=== PATIENT | male | born 1975 | race Caucasian/White ===

== ENCOUNTER 2018-09-29 15:52 | Emergency (ER) | payer BC, OTHER ==
[~2018-09-29] VITALS: Wt 98.9 kg
[2018-09-29 15:57] VITALS: BP 126/73; PULSE 87; RESP 19
--- NOTE | 2018-09-29 18:00 | ERD ---
ER Documentation Chief Complaint Chief Complaint bib self, cc: flu like symptoms x 1 week HPI 43-year-old male, presents to the emergency department, complaining of upper respiratory symptoms for 1 week that worsened during the last 2 days, now the patient is complaining of fever, chills, productive cough, shortness of breath and general malaise. The patient has been taking [id number] medication without improvement of the symptoms. He is requesting a prescription for antibiotics. ROS All systems reviewed and are negative except as per history of present illness. Medications Home Meds Active Scripts Inhaler, Assist Devices (Compact Space Chamber) 1 Each Spacer, EACH MC Q4 PRN for COUGH, #1 Prov:NICHOL FELIX MD 09/29/18 Ibuprofen* (Motrin*) 400 Mg Tab, 400 MG PO Q8, #15 TAB Prov:NICHOL FELIX MD 09/29/18 Albuterol Sulfate* (Proair HFA*) 8.5 Gm Hfa.aer.ad, 2 PUFF INH Q4H PRN for WHEEZING AND SOB, #1 INHALER Prov:NICHOL FELIX MD 09/29/18 Azithromycin* (Zithromax*) 250 Mg Tablet, 250 MG PO .ZPACK DIRECTED, #6 TAB TAKE 500 MG (2 TABS) THE FIRST DAY THEN 250 MG (1 TAB) DAYS 2-5 Prov:NICHOL FELIX MD 09/29/18 Amoxicillin* (Amoxicillin*) 500 Mg Cap, 500 MG PO TID for 7 Days, CAP Prov:NICHOL FELIX MD 09/29/18 Allergies Allergies: Coded Allergies: No Known Allergy (Unverified , 09/29/18) PMhx/Soc Medical and Surgical Hx: pt denies Medical Hx, pt denies Surgical Hx Hx Alcohol Use: No Hx Substance Use: No Hx Tobacco Use: No Smoking Status: Never smoker FmHx Family History: No diabetes, No coronary disease Physical Exam Vitals Vital Signs Label Value Date Time Respiratory Rate 19 breaths per minute 09/29/18 1557 Physical Exam Const: No acute distress Head: Atraumatic Eyes: Normal Conjunctiva ENT: Erythematous oropharynx. Normal External Ears, Nose and Mouth. Neck: Full range of motion. No meningismus. Resp: Diffuse rhonchi to auscultation bilaterally Cardio: Regular rate and rhythm, no murmurs Abd: Soft, non tender, non distended. Normal bowel sounds Skin: No petechiae or rashes Back: No midline or flank tenderness Ext: No cyanosis, or edema Neur: Awake and alert Psych: Normal Mood and Affect Procedures/MDM Vital signs stable, no respiratory distress. Differential diagnosis include but not limited to: Respiratory infection bacterial/viral/fungal. Influenza, croup, bronchiolitis, pneumonitis, allergies, GERD. Less likely foreign body aspiration, cardiac related. Physical examination and clinical presentation consistent most likely with viral infection with early superimposed bacterial infection. During the ED course the patient remained stable, no new complaints. Treatment options and clinical impression discussed with the patient who agrees with management. The patient is stable to be treated outpatient and will be discharged home. Some side effects of prescribed medications (headache, rash, nausea, vomiting, diarrhea, interactions with other medications) were reviewed. The patient needs to follow up with the primary care provider in the next 48h. If symptoms persist, worsen or new symptoms develop, then patient should return to the ED immediately. Disclaimer: Inadvertent spelling and grammatical errors are likely due to EHR/dictation software use and do not reflect on the overall quality of patient care. Also, please note that the electronic time recorded on this note does not necessarily reflect the actual time of the patient encounter. Departure Diagnosis: Primary Impression: Cough Additional Impression: Superimposed infection Condition: Stable Additional Instructions: Muchas gemma por [facility] para alba servicio. Esperamos que en alba visita a la adriana de emergencia alba problema medico haya sido solucionado y que se sienta mucho mejor. Para estar seguros que alba mejoria sigue en proceso, le pedimos el favor de hacer sully misa de seguimiento medico con alba doctor primario en los proximos 2-4 basilio. Lleve con usted estos documentos y las medicinas recetadas. Si anam sintomas empeoran, NO SE ESPERE, por favor regrese a adriana de emergencia INMEDIATAMENTE. En shade que usted no tenga un mdico de atencin primaria: Llame al mdico o clnica comunitaria de referencia que aparece abajo rachael las horas de consultorio para hacer sully misa para que le vean. CLINICAS: [facility] [phone] [facility] [phone] [facility] [phone] [address] [place] [phone] [place] [id number] [phone] [facility]. [phone] NICHOL CHAMBERS MD Sep 29, 2018 18:00
[2018-09-29] MEDS ORDERED: ALBU8.5H8 INH (18:02)
[2018-09-29] MEDS ORDERED: IBUP-1561 PO (18:02)
[2018-09-29] MEDS ORDERED: INHA-3 MC (18:02)
[2018-09-29] MEDS ORDERED: AZIT250T PO (18:02)
[2018-09-29] MEDS ORDERED: AMOX500C2 PO (18:02)
== END 2018-09-29 18:15 | disposition home or self-care (01) ==
LOC: FTE 15:52
DX: A49.9 Bacterial infection, unspecified (principal)
CPT/HCPCS: 99283